=== PATIENT | male | born 1960 | race Caucasian/White ===

== ENCOUNTER 2025-01-04 10:09 | Inpatient (IN) | payer OTHER ==
[~2025-01-04] VITALS: Ht 170.2 cm; Wt 75.8 kg
[2025-01-04] MEDS ORDERED: Prochlorperazine Edisylate 10 mg Vial IV ONE ×2 (10:35→14:40)
[2025-01-04] MEDS ORDERED: HYDROmorphone HCl/Pf 1MG SYR IV ONE (10:35)
[2025-01-04] MEDS ORDERED: DiphenhydrAMINE HCl 50 MG/ML 1ML Vial IV ONE ×2 (10:35→14:40)
[2025-01-04 11:35] LABS: BASOPHILS ABSOLUTE AUTO 0.03 K/mm3 (0.00-0.23); BASOPHILS PERCENT AUTO 0 % (0-2); EOSINOPHILS ABSOLUTE AUTO 0.01 K/mm3 (0.00-0.68); EOSINOPHILS PERCENT AUTO 0 % (0-6); Hematocrit 45.6 % (37.0-53.0); Hemoglobin 16.7 g/dL (13.5-17.5); IMMATURE GRAN ABSOLUTE AUTO 0.03 K/mm3 (0.00-0.10); IMMATURE GRAN PERCENT AUTO 0 % (0-1); LYMPHOCYTES PERCENT AUTO 5 % (21-46); MONOCYTES ABSOLUTE AUTO 0.41 K/mm3 (0.16-1.47); MONOCYTES PERCENT AUTO 4 % (4-13); Mean Corpuscular HGB 34.2 pg (26.0-34.0); Mean Corpuscular HGB Conc 36.6 g/dL (31.5-36.5); Mean Corpuscular Volume 93 fL (80-100); Mean Platelet Volume 10.6 fL (9.1-12.4); NEUTROPHILS ABSOLUTE AUTO 9.72 K/mm3 (1.96-9.15); NEUTROPHILS PERCENT AUTO 91 % (41-73); Platelet Count 226 K/mm3 (150-400); RDW Coefficient Variation 11.7 % (11.7-14.2); RDW Standard Deviation 40.4 fL (35.1-46.3); Red Blood Cell Count 4.88 M/mm3 (4.30-5.90)
[2025-01-04 11:50] LABS: International Normalized Ratio 1.05; Prothrombin Time Results 11.2 Sec (9.7-11.5)
[2025-01-04 12:04] LABS: Albumin, Blood 4.1 g/dL (3.4-5.0); Albumin/Globulin Ratio 1.1 (0.8-1.8); Bun/Creatinine Ratio 22.1 (12.0-20.0); Calcium, Blood 9.5 mg/dL (8.5-10.1); Creatinine, Blood 1.04 mg/dL (0.60-1.20); Globulin, Blood 3.6 g/dL (2.2-4.0); Potassium, Blood 4.3 mmol/L (3.5-5.5); Total Protein, Blood 7.7 g/dL (6.4-8.2)
[2025-01-04 14:03] LABS: Source, Urine Clean Catch
[2025-01-04 14:06] LABS: Appearance, Urine Clear (Clear); Bilirubin, Urine Neg (Neg); Blood, Urine Neg (Neg); Color, Urine Yellow (P-Yellow); Glucose Qualitative, Urine 4+ (Neg); Ketones, Urine 3+ (Neg); Leukocyte Esterase, Urine Neg (Neg); Nitrite, Urine Neg (Neg); Protein, Urine 2+ (Neg); Urobilinogen, Urine NORM (Normal)
[2025-01-04 14:19] LABS: Bacteria Rare /hpf; Red Blood Cells, Urine 0-2 /hpf (0-2); Squamous Epithelial Cells Rare /hpf (Few); White Blood Cells, Urine 0-2 /hpf (0-5)
[2025-01-04] MEDS ORDERED: Metoclopramide HCl 5MG / ML 2ML Vial IV ONE (14:40)
[2025-01-04] MEDS ORDERED: Famotidine 10 MG/ML 2ML Vial IV ONE (14:40)
[2025-01-04 15:13] LABS: Hematocrit 45.6 % (37.0-53.0); Hemoglobin 16.5 g/dL (13.5-17.5)
[2025-01-04] MEDS ORDERED: Lactated Ringer's 1,000 ML IV SCH (16:50)
[2025-01-04] MEDS ORDERED: Magnesium Hydroxide Conc 10 ML UDC PO PRN (17:05)
[2025-01-04] MEDS ORDERED: Bisacodyl 10 MG Supp PR PRN (17:05)
[2025-01-04 18:25] VITALS: BP 184/87
--- NOTE | 2025-01-04 18:27 | NUR ---
ADMISSION NOTE: PATIENT ARRIVED TO THE UNIT VIA GURNEY AT 1822; PT WAS ABLE TO TRANSFER ONTO THE BED AND RESTROOM WITH 1 ASSIST; A LITTLE UNSTEADY. SETTLED IN ROOM, SKIN ASSESS, IV ASSESSED, PATIENT PARANOID. CALL LIGHT PROVIDED, IN BED, NO SIGNS OR SYMPTOMS OF DISTRESS, PLAN OF CARE ONGOING.
[2025-01-04] MEDS ORDERED: Scopolamine Hydrobromide Patch TOP PRN (18:40)
[2025-01-04] MEDS ORDERED: Ondansetron HCl 2 MG / ML 2ML Vial IV PRN (18:40)
[2025-01-04] MEDS ORDERED: HYDROmorphone HCl/Pf 1MG SYR IV PRN (18:40)
[2025-01-04] MEDS ORDERED: HydrALAZINE HCl 20 MG / ML 1ML Vial IV PRN (18:45)
[2025-01-04 20:15] VITALS: BP 132/78
[2025-01-04] MEDS ORDERED: Docusate Sodium 100 MG Cap PO SCH (21:00)
[2025-01-04] MEDS ORDERED: Sennosides 8.6 MG Tab PO SCH (21:00)
[2025-01-04] MEDS ORDERED: Insulin Human Lispro 100 Units/ML 3ML Syringe SC SCH (21:00)
[2025-01-04] MEDS ORDERED: LISI20 PO (21:36)
[2025-01-04] MEDS ORDERED: PANT40 PO (21:37)
[2025-01-04] MEDS ORDERED: ONDA4ODT MM (21:40)
[2025-01-04] MEDS ORDERED: TAMS.4ER PO (21:41)
[2025-01-04] MEDS ORDERED: AMLO10 PO (21:41)
[2025-01-04] MEDS ORDERED: GLUCOSE4 GM PO (21:43)
[2025-01-04] MEDS ORDERED: ATOR40TA PO (21:44)
[2025-01-04] MEDS ORDERED: METO50ER PO (21:47)
[2025-01-04] MEDS ORDERED: VENL75ER PO (21:48)
[2025-01-04] MEDS ORDERED: TRAZ100 PO (21:48)
[2025-01-04] MEDS ORDERED: NITR.4SL SL (21:49)
[2025-01-04] MEDS ORDERED: GABA100 PO (21:50)
[2025-01-04] MEDS ORDERED: MASOPHEN325 M3 PO (21:52)
[2025-01-05] VITALS (7 sets, daily range): BP systolic 131–170; BP diastolic 60–88
--- NOTE | 2025-01-05 04:08 | NUR ---
SHIFT SUMMARY PT A&Ox4 AND COOPERATIVE OF CARE. REPORTED PAIN IMPROVED AND DENIED NEED FOR PAIN MEDICATIONS. NO REPORTS OF N/V. TOLERATING PO WATER INTAKE. SCDs IN PLACE T/O NIGHT. LR INFUSING AT 125ml/hr. PT ABLE TO SLEEP MOST OF THE NIGHT. VSS. PT NSR IN THE 70's ON TELE. BED ALARM ON. BED IN LOWEST POSTION AND CALL LIGHT IN REACH.
[2025-01-05 05:50] LABS: BASOPHILS ABSOLUTE AUTO 0.02 K/mm3 (0.00-0.23); BASOPHILS PERCENT AUTO 0 % (0-2); EOSINOPHILS ABSOLUTE AUTO 0.04 K/mm3 (0.00-0.68); EOSINOPHILS PERCENT AUTO 0 % (0-6); Hematocrit 43.2 % (37.0-53.0); Hemoglobin 14.7 g/dL (13.5-17.5); IMMATURE GRAN ABSOLUTE AUTO 0.03 K/mm3 (0.00-0.10); IMMATURE GRAN PERCENT AUTO 0 % (0-1); LYMPHOCYTES ABSOLUTE AUTO 0.93 K/mm3 (0.84-5.20); LYMPHOCYTES PERCENT AUTO 9 % (21-46); MONOCYTES ABSOLUTE AUTO 0.91 K/mm3 (0.16-1.47); MONOCYTES PERCENT AUTO 9 % (4-13); Mean Corpuscular HGB 32.5 pg (26.0-34.0); Mean Corpuscular Volume 96 fL (80-100); Mean Platelet Volume 10.2 fL (9.1-12.4); NEUTROPHILS ABSOLUTE AUTO 7.99 K/mm3 (1.96-9.15); NEUTROPHILS PERCENT AUTO 81 % (41-73); Platelet Count 221 K/mm3 (150-400); RDW Coefficient Variation 11.9 % (11.7-14.2); RDW Standard Deviation 41.8 fL (35.1-46.3); Red Blood Cell Count 4.52 M/mm3 (4.30-5.90); White Blood Cell Count 9.92 K/mm3 (4.00-11.30)
[2025-01-05] MEDS ORDERED: Pantoprazole Sodium 40 MG Injection IV SCH (06:00)
[2025-01-05 06:10] LABS: Albumin, Blood 3.5 g/dL (3.4-5.0); Albumin/Globulin Ratio 1.2 (0.8-1.8); Bilirubin, Total 0.9 mg/dL (0.1-1.0); Bun/Creatinine Ratio 18.9 (12.0-20.0); Calcium, Blood 8.7 mg/dL (8.5-10.1); Creatinine, Blood 1.06 mg/dL (0.60-1.20); Magnesium, Blood 2.3 mg/dL (1.6-2.4); Phosphorus, Blood 2.4 mg/dL (2.5-4.9); Total Protein, Blood 6.5 g/dL (6.4-8.2)
[2025-01-05] MEDS ORDERED: Sodium Phosphate 20 MM in Dextrose 5% 500 ML IV STA (07:27)
[2025-01-05 07:43] LABS: CHOL/HDL RATIO 4.4; Cholesterol 137 mg/dL (50-200); HDL Cholesterol 31 mg/dL (>39); LDL/HDL RATIO 2.4; Low Density Lipoprotein Chol 75 mg/dL (0-110); Triglycerides 157 mg/dL (30-160); Very Low Density Lipoprot Chol 31 mg/dL (6-32)
[2025-01-05] MEDS ORDERED: Enoxaparin 40 MG/0.4 ML SYR SC SCH (09:00)
[2025-01-05] MEDS ORDERED: Nitroglycerin 0.4 MG SUBL SL PRN (09:20)
[2025-01-05] MEDS ORDERED: Acetaminophen 325 MG TABLET PO PRN (09:50)
[2025-01-05 12:41] LABS: Percent Saturation 68.5 % (20.0-50.0)
[2025-01-05] MEDS ORDERED: Gabapentin 100 MG Cap PO SCH (14:00)
--- NOTE | 2025-01-05 17:50 | NUR ---
SHIFT SUMMARY ASSUMED CARE OF PT AROUND 1415 FROM JOSE BENAVIDES. PT NOTED TO BE A&OX 4. PT DENIES SOB,N/V OR EPIGASTRIC PAIN AT THIS TIME. PHYSICIAN NOTED TO ADVANCE PT DIET TO HEART HEALTHY PT REFUSED TO EAT BUT WAS WILLING TO DRINK SOME BROTH, JELLO. REQUEST FOR MEDICAL RECORDS FAXED TO [facility] FOR CONT OF CARE PER PHYSICIAN REQUEST CURRENTLY AWAITING RESPONSE.
[2025-01-05] MEDS ORDERED: TraZODone HCl 100 MG Tab PO SCH (21:00)
[2025-01-06 00:25] VITALS: BP 137/75
[2025-01-06 03:26] VITALS: BP 156/72
[2025-01-06 05:21] LABS: BASOPHILS ABSOLUTE AUTO 0.05 K/mm3 (0.00-0.23); BASOPHILS PERCENT AUTO 1 % (0-2); EOSINOPHILS ABSOLUTE AUTO 0.16 K/mm3 (0.00-0.68); EOSINOPHILS PERCENT AUTO 2 % (0-6); Hematocrit 45.7 % (37.0-53.0); Hemoglobin 15.9 g/dL (13.5-17.5); IMMATURE GRAN ABSOLUTE AUTO 0.03 K/mm3 (0.00-0.10); IMMATURE GRAN PERCENT AUTO 0 % (0-1); LYMPHOCYTES ABSOLUTE AUTO 0.97 K/mm3 (0.84-5.20); LYMPHOCYTES PERCENT AUTO 12 % (21-46); MONOCYTES ABSOLUTE AUTO 0.86 K/mm3 (0.16-1.47); MONOCYTES PERCENT AUTO 11 % (4-13); Mean Corpuscular HGB 33.9 pg (26.0-34.0); Mean Corpuscular HGB Conc 34.8 g/dL (31.5-36.5); Mean Corpuscular Volume 97 fL (80-100); Mean Platelet Volume 10.3 fL (9.1-12.4); NEUTROPHILS ABSOLUTE AUTO 5.78 K/mm3 (1.96-9.15); NEUTROPHILS PERCENT AUTO 74 % (41-73); Platelet Count 228 K/mm3 (150-400); RDW Coefficient Variation 12.2 % (11.7-14.2); RDW Standard Deviation 43.8 fL (35.1-46.3); Red Blood Cell Count 4.69 M/mm3 (4.30-5.90); White Blood Cell Count 7.85 K/mm3 (4.00-11.30)
--- NOTE | 2025-01-06 05:28 | NUR ---
SHIFT SUMMARY PT A&Ox4. AT START OF SHIFT, PER TELE, PT HAD ST ELEVATIONS. PT ASYMPTOMATIC DR THOMPSON NOTIFIED AND ORDER FOR ECG GIVEN AND NOTIFIED WITH RESULTS. NO NEW ORDERS GIVEN. PT MEDICATED PER EMAR FOR NAUSEA AND PAIN WITH GOOD EFFECT. PT ABLE TO TAKE SHOWER IN THE EVENING. BG WAS 158 AT HS SO NO COVERAGE NEEDED. VSS. SCD's USED T/O NIGHT. BED IN LOWEST POSTITION AND CALL LIGHT IN REACH.
[2025-01-06 05:53] LABS: Albumin, Blood 3.5 g/dL (3.4-5.0); Albumin/Globulin Ratio 1.1 (0.8-1.8); Bilirubin, Total 0.9 mg/dL (0.1-1.0); Bun/Creatinine Ratio 17.9 (12.0-20.0); Calcium, Blood 8.9 mg/dL (8.5-10.1); Creatinine, Blood 1.12 mg/dL (0.60-1.20); Globulin, Blood 3.2 g/dL (2.2-4.0); Potassium, Blood 3.7 mmol/L (3.5-5.5); Total Protein, Blood 6.7 g/dL (6.4-8.2)
[2025-01-06 07:41] VITALS: BP 139/80
[2025-01-06] MEDS ORDERED: Atorvastatin 40 MG Tab PO SCH (09:00)
[2025-01-06] MEDS ORDERED: Lisinopril 20 MG Tab PO SCH (09:00)
[2025-01-06] MEDS ORDERED: Metoprolol Succinate 50 MG TABCR PO SCH (09:00)
[2025-01-06] MEDS ORDERED: AmLODIPine Besylate 5 MG Tab PO SCH (09:00)
[2025-01-06] MEDS ORDERED: Venlafaxine HCl 75 MG CapCR PO SCH (09:00)
[2025-01-06] MEDS ORDERED: Tamsulosin HCl 0.4 MG Cap PO SCH (09:00)
[2025-01-06] MEDS ORDERED: Lactated Ringer's 1,000 ML IV SCH (11:41)
[2025-01-06] MEDS ORDERED: Amylase/Lipase/Protease DR Cap 12,000 PO SCH (12:30)
[2025-01-06] MEDS ORDERED: HYDROmorphone HCl/Pf 1MG SYR IV PRN (15:54)
[2025-01-06] MEDS ORDERED: OxyCODONE HCL 5 MG TAB PO PRN (16:00)
[2025-01-06 16:44] VITALS: BP 133/82
--- NOTE | 2025-01-06 18:04 | NUR ---
PT A&OX4, SR IN 70S WITH BBB ON TELE, RA. TOLERATING WATER AND VERY LITTLE FOOD. C/O NAUSEA AND ABD PAIN, PAIN MANAGED WITH PRN DILAUDED. NEW ORDER OF OXYCODONE WITH INSTRUCTIONS TO USE FIRST AND ONLY USE DILAUDED FOR BREAKTHROUGH PAIN NOT MANAGED WITH OXYCODONE, PT AWARE. LR RUNNING PER ORDER. PT ABLE TO MAKE NEEDS KNOWN, CALL LIGHT IN REACH.
[2025-01-06 19:34] VITALS: BP 143/69
[2025-01-06 23:29] VITALS: BP 106/66
[2025-01-07] VITALS (7 sets, daily range): BP systolic 114–158; BP diastolic 54–82
--- NOTE | 2025-01-07 02:04 | NUR ---
TELE CHANGES AND NEW EKG RECEIVED NOTIFICATION FROM GAMEPLAY PROGRAMMER OF [facility]. WENT TO PT BEDSIDE; PT REPORTING INCREASED PAIN IN BACK AND SHOULDER. PT SAID HE WAS HAVING MILD CHEST PAIN. NEW SET OF VITALS AND NEW EKG DONE. NOT CHANGES TO EKG FROM PREVIOUS. NO ST ELEVATION NOTED. WILL CONT TO MONITOR. EDUCATED PT ON EKG AND NEEDS TO REPORT CHANGES OR WORSENING CHEST PAIN/PRESSURE.
[2025-01-07 05:33] LABS: BASOPHILS ABSOLUTE AUTO 0.03 K/mm3 (0.00-0.23); BASOPHILS PERCENT AUTO 1 % (0-2); EOSINOPHILS ABSOLUTE AUTO 0.22 K/mm3 (0.00-0.68); EOSINOPHILS PERCENT AUTO 4 % (0-6); Hematocrit 42.1 % (37.0-53.0); Hemoglobin 14.2 g/dL (13.5-17.5); IMMATURE GRAN ABSOLUTE AUTO 0.02 K/mm3 (0.00-0.10); IMMATURE GRAN PERCENT AUTO 0 % (0-1); LYMPHOCYTES PERCENT AUTO 17 % (21-46); MONOCYTES ABSOLUTE AUTO 0.69 K/mm3 (0.16-1.47); MONOCYTES PERCENT AUTO 12 % (4-13); Mean Corpuscular HGB 33.2 pg (26.0-34.0); Mean Corpuscular HGB Conc 33.7 g/dL (31.5-36.5); Mean Corpuscular Volume 98 fL (80-100); Mean Platelet Volume 10.6 fL (9.1-12.4); NEUTROPHILS ABSOLUTE AUTO 3.97 K/mm3 (1.96-9.15); NEUTROPHILS PERCENT AUTO 67 % (41-73); Platelet Count 202 K/mm3 (150-400); RDW Coefficient Variation 11.9 % (11.7-14.2); RDW Standard Deviation 43.2 fL (35.1-46.3); Red Blood Cell Count 4.28 M/mm3 (4.30-5.90); White Blood Cell Count 5.93 K/mm3 (4.00-11.30)
[2025-01-07 05:53] LABS: Albumin, Blood 3.3 g/dL (3.4-5.0); Albumin/Globulin Ratio 1.1 (0.8-1.8); Bilirubin, Total 0.8 mg/dL (0.1-1.0); Bun/Creatinine Ratio 13.9 (12.0-20.0); Calcium, Blood 8.9 mg/dL (8.5-10.1); Creatinine, Blood 1.15 mg/dL (0.60-1.20); Globulin, Blood 2.9 g/dL (2.2-4.0); Potassium, Blood 3.8 mmol/L (3.5-5.5); Total Protein, Blood 6.2 g/dL (6.4-8.2)
--- NOTE | 2025-01-07 06:00 | NUR ---
MATERIAL REQUISITIONER SUMMARY SEE PREVIOUS NURSE NOTE. PT STATES CHEST PAIN RESOLVED. NO FURTHER ALARMS ON TELE. NO CHANGES ON THE NEW EKG. PT REPORTING 5-7/10 PAIN WITH LITTLE IMPROVMENT AFTER OXYCODONE. PT GIVEN 1MG OF DILAUDID WITH GOOD EFFECT. PT REPORTING NAUSEA AFTER DRINKING "A LOT OF WATER"; ZOFRAN GIVEN. OTHERWISE, PT TOLERATING PO INTAKE WHICH IS MOSTLY FULL LIQUIDS AT THIS TIME. PT ABLE TO MAKE NEEDS KNOWN. CALL LIGHT IN REACH.
--- NOTE | 2025-01-07 18:24 | NUR ---
SUMMARY PATIENT A/OX4. REQUESTED OXYCODONE X2 THIS SHIFT FOR CHRONIC RIGHT SHOULDER/NECK PAIN. PT REPORTS ABD PAIN IS RESOLVED. BLOOD GLUCOSE CHEMSTICKS AND INSULIN ORDER WERE DC'D SUGARS HAVE BEEN WELL CONTROLLED WITH NO COVERAGE. UP TO SHOWER TODAY. SCOPOLAMINE PATCH PLACED TO LEFT EAR. HAD TO PULL PATCH FROM PYXIS ERLY PATIENT STATED PRIOR PATCH WAS WASHED OFF IN SHOWER. EDUCATED PATIENT THAT HE NEEDS TO NOTIFY STAFF WHEN PLANNING TO SHOWER SO WE CAN SECURE PATCH. PLAN TO DC TOMORROW. PT ABLE TO MAKE NEEDS KNOWN. CALLING APPROPRIATELY.
[2025-01-08 03:50] VITALS: BP 170/69
--- NOTE | 2025-01-08 04:31 | NUR ---
SHIFT SUMMARY PT ALERT ORIENTED X 4 ABLE TO VERBALIZE NEEDS NO C/O ABDOMINAL PAIN NAUSEA OR EMESIS. DOES C/O CHRONIC BACK PAIN MEDICATED WITH OXY WITH GOOD PAIN RELIEF. HIS BP WAS ELEVATED AT 170 BUT THAT WAS R/T BACK PAIN. HE HAS A SCOPALAMINE PATCH THAT HELPS WITH THE N/V. HES DUE TO DC TO HOME TODAY LONG HE TOLERATES HIS REGULAR FOOD. RESTING IN BED AT THIS TIME WITH CALL LIGHT IN REACH
[2025-01-08 05:25] LABS: BASOPHILS ABSOLUTE AUTO 0.04 K/mm3 (0.00-0.23); BASOPHILS PERCENT AUTO 1 % (0-2); EOSINOPHILS ABSOLUTE AUTO 0.32 K/mm3 (0.00-0.68); EOSINOPHILS PERCENT AUTO 6 % (0-6); Hematocrit 43.9 % (37.0-53.0); Hemoglobin 15.1 g/dL (13.5-17.5); IMMATURE GRAN ABSOLUTE AUTO 0.01 K/mm3 (0.00-0.10); IMMATURE GRAN PERCENT AUTO 0 % (0-1); LYMPHOCYTES ABSOLUTE AUTO 0.93 K/mm3 (0.84-5.20); LYMPHOCYTES PERCENT AUTO 18 % (21-46); MONOCYTES ABSOLUTE AUTO 0.77 K/mm3 (0.16-1.47); MONOCYTES PERCENT AUTO 15 % (4-13); Mean Corpuscular HGB 33.2 pg (26.0-34.0); Mean Corpuscular HGB Conc 34.4 g/dL (31.5-36.5); Mean Corpuscular Volume 97 fL (80-100); Mean Platelet Volume 10.3 fL (9.1-12.4); NEUTROPHILS ABSOLUTE AUTO 3.15 K/mm3 (1.96-9.15); NEUTROPHILS PERCENT AUTO 60 % (41-73); Platelet Count 219 K/mm3 (150-400); RDW Coefficient Variation 11.8 % (11.7-14.2); RDW Standard Deviation 41.8 fL (35.1-46.3); Red Blood Cell Count 4.55 M/mm3 (4.30-5.90); White Blood Cell Count 5.22 K/mm3 (4.00-11.30)
[2025-01-08 05:45] LABS: Albumin, Blood 3.6 g/dL (3.4-5.0); Albumin/Globulin Ratio 1.1 (0.8-1.8); Bilirubin, Total 0.9 mg/dL (0.1-1.0); Bun/Creatinine Ratio 14.4 (12.0-20.0); Calcium, Blood 9.5 mg/dL (8.5-10.1); Creatinine, Blood 1.18 mg/dL (0.60-1.20); Globulin, Blood 3.2 g/dL (2.2-4.0); Potassium, Blood 4.2 mmol/L (3.5-5.5); Total Protein, Blood 6.8 g/dL (6.4-8.2)
[2025-01-08 07:42] VITALS: BP 132/74
--- NOTE | 2025-01-08 14:57 | NUR ---
DISCHARGE PT VERBALIZED UNDERSTANDING OF DC INSTRUCTIONS. LEFT VIA WC TO [facility] WHERE VEH. PARKED. DENIED PAIN OR SOB.
== END 2025-01-08 11:48 | disposition home or self-care (01) | DRG 439 ==
LOC: ER 10:09 → MEDS 10:10
PROVIDERS: Family Medicine; Physician Assistant; Student in an Organized Health Care Education/Training Program; ADMIT Internal Medicine
DX: K85.90 Acute pancreatitis without necrosis or infection, unspecified (principal); K92.0 Hematemesis; K86.1 Other chronic pancreatitis; R94.31 Abnormal electrocardiogram [ECG] [EKG]; I50.9 Heart failure, unspecified; E83.110 Hereditary hemochromatosis; Z66 Do not resuscitate; I11.0 Hypertensive heart disease with heart failure; R73.03 Prediabetes; N40.1 Benign prostatic hyperplasia with lower urinary tract symptoms; F32.A Depression, unspecified; E78.5 Hyperlipidemia, unspecified; G62.9 Polyneuropathy, unspecified; K74.69 Other cirrhosis of liver; E86.0 Dehydration; K21.9 Gastro-esophageal reflux disease without esophagitis; F41.9 Anxiety disorder, unspecified; F43.10 Post-traumatic stress disorder, unspecified; G47.00 Insomnia, unspecified; G89.29 Other chronic pain; M54.50 Low back pain, unspecified; M54.2 Cervicalgia; F10.21 Alcohol dependence, in remission; Z88.0 Allergy status to penicillin; Z87.891 Personal history of nicotine dependence; Z86.711 Personal history of pulmonary embolism; Z85.47 Personal history of malignant neoplasm of testis
CPT/HCPCS: 36415; 74177; 76705; 80053; 80061; 80320; 81001; 82728; 82947; 83036; 83540; 83550; 83605; 83690; 83735; 84100; 85014; 85018; 85025; 85610; 85730; 86850; 86900; 86901; 93005; 93010; 96365; 96366; 96374-59; 96375; 96376; 99285-25; A9270; G0378; J0360; J0780; J1171; J1200; J1650; J2405; J2470; J7060; J7120; Q9967

== ENCOUNTER 2025-03-23 15:59 | Emergency (ER) | payer OTHER ==
[~2025-03-23] VITALS: Ht 170.2 cm; Wt 77.6 kg
[~2025-03-23 15:59] MED LIST: AMLO10 PO; ATOR40TA PO; GABA100 PO; GLUCOSE4 GM PO; LISI20 PO; MASOPHEN325 M3 PO; METO50ER PO; NITR.4SL SL; ONDA4ODT MM; PANT40 PO; TAMS.4ER PO; TRAZ100 PO; VENL75ER PO
[2025-03-23] MEDS ORDERED: Ondansetron HCl 2 MG / ML 2ML Vial IV PRN (16:10)
[2025-03-23 16:34] LABS: BASOPHILS ABSOLUTE AUTO 0.05 K/mm3 (0.00-0.23); BASOPHILS PERCENT AUTO 1 % (0-2); EOSINOPHILS ABSOLUTE AUTO 0.01 K/mm3 (0.00-0.68); EOSINOPHILS PERCENT AUTO 0 % (0-6); Hematocrit 48.6 % (37.0-53.0); Hemoglobin 17.6 g/dL (13.5-17.5); IMMATURE GRAN ABSOLUTE AUTO 0.03 K/mm3 (0.00-0.10); IMMATURE GRAN PERCENT AUTO 0 % (0-1); LYMPHOCYTES ABSOLUTE AUTO 0.71 K/mm3 (0.84-5.20); LYMPHOCYTES PERCENT AUTO 6 % (21-46); MONOCYTES ABSOLUTE AUTO 0.54 K/mm3 (0.16-1.47); MONOCYTES PERCENT AUTO 5 % (4-13); Mean Corpuscular HGB Conc 36.2 g/dL (31.5-36.5); Mean Corpuscular Volume 91 fL (80-100); NEUTROPHILS ABSOLUTE AUTO 9.77 K/mm3 (1.96-9.15); NEUTROPHILS PERCENT AUTO 88 % (41-73); NRBC ABSOLUTE 0.00 K/mm3 (0.00-0.02); NRBC Auto 0.0 /100 WBC (0.0-0.2); Platelet Count 257 K/mm3 (150-400); RDW Coefficient Variation 12.3 % (11.7-14.2); RDW Standard Deviation 41.5 fL (35.1-46.3)
[2025-03-23 16:55] LABS: Alanine Aminotransfer (ALT/SGP 45.0 U/L (12-78); Albumin, Blood 4.5 g/dL (3.4-5.0); Albumin/Globulin Ratio 1.2 (0.8-1.8); Anion Gap 13.0 mmol/L (3-11); Aspartate Aminotrans (AST/SGOT 27.0 U/L (12-37); Bilirubin, Total 1.0 mg/dL (0.1-1.0); Blood Urea Nitrogen 17.0 mg/dL (8-24); CO2, Blood 21.0 mmol/L (21-32); Calcium, Blood 9.7 mg/dL (8.5-10.1); Chloride, Blood 100.0 mmol/L (98-108); Creatinine, Blood 1.04 mg/dL (0.60-1.20); Globulin, Blood 3.7 g/dL (2.2-4.0); Glucose, Blood 226.0 mg/dL (70-99); Potassium, Blood 4.3 mmol/L (3.5-5.5); Sodium, Blood 130.0 mmol/L (136-145); Total Protein, Blood 8.2 g/dL (6.4-8.2)
[2025-03-23 18:19] LABS: Source, Urine Clean Catch
[2025-03-23 18:34] LABS: Bilirubin, Urine Neg (Neg); Color, Urine Yellow (P-Yellow); Glucose Qualitative, Urine 4+ (Neg); Ketones, Urine 3+ (Neg); Leukocyte Esterase, Urine Neg (Neg); Protein, Urine 2+ (Neg); Specific Gravity, Urine 1.005 (1.003-1.022); Urobilinogen, Urine NORM (Normal)
[2025-03-23 18:45] LABS: Red Blood Cells, Urine 0-2 /hpf (0-2); White Blood Cells, Urine 0-2 /hpf (0-5)
[2025-03-23] MEDS ORDERED: Ketorolac Tromethamine 15mg Vial IV ONE (18:55)
[2025-03-23] MEDS ORDERED: HYDROmorphone HCl/Pf 1MG SYR IV ONE (18:55)
[2025-03-23] MEDS ORDERED: Ondansetron HCl 2 MG / ML 2ML Vial IV ONE (19:00)
== END 2025-03-23 20:09 | disposition home or self-care (01) ==
LOC: ER 15:59
PROVIDERS: Student in an Organized Health Care Education/Training Program
DX: G62.9 Polyneuropathy, unspecified (principal); R11.15 Cyclical vomiting syndrome unrelated to migraine; I10 Essential (primary) hypertension; F17.200 Nicotine dependence, unspecified, uncomplicated; Z79.899 Other long term (current) drug therapy; Z88.0 Allergy status to penicillin
CPT/HCPCS: 26770; 80053; 81001; 83690; 84484; 85025; 93005; 93010; 96374-59; 96375-59; 96376-59; 99284-25; J1171; J1885; J2405